=== PATIENT | male | born 1955 | race Two or more races ===

== ENCOUNTER 2018-04-02 07:08 | Outpatient (CLI) | payer OTHER | END 2018-04-02 07:13 | disposition home or self-care (01) | LOC: RAD 07:08 | DX: D68.8 Other specified coagulation defects (principal); Z01.812 Encounter for preprocedural laboratory examination ==

== ENCOUNTER 2019-10-22 08:28 | Outpatient (CLI) | payer OTHER | END 2019-10-22 08:32 | disposition home or self-care (01) | LOC: RAD 08:28 | PROVIDERS: ATTEND Orthopaedic Surgery Sports Medicine | DX: M25.511 Pain in right shoulder (principal) ==

== ENCOUNTER → 2020-04-15 | Outpatient (CLI) | payer OTHER | END | disposition home or self-care (01) | LOC: RAD 15:42 | PROVIDERS: ATTEND Orthopaedic Surgery | DX: M25.561 Pain in right knee (principal) ==